=== PATIENT | female | born 1945 | race Native Hawaiian/Other Pacific Islander ===

== ENCOUNTER 2022-07-13 16:01 | Outpatient (CLI) | payer OTHER | END 2022-07-13 19:07 | disposition home or self-care (01) | LOC: CT 16:01 | PROVIDERS: ATTEND Internal Medicine | DX: R41.82 Altered mental status, unspecified (principal); R47.01 Aphasia ==

== ENCOUNTER 2022-07-17 10:33 | Outpatient (CLI) | payer OTHER | END 2022-07-17 20:32 | disposition home or self-care (01) | LOC: MRI 10:33 | PROVIDERS: ATTEND Internal Medicine | DX: R41.82 Altered mental status, unspecified (principal); G45.9 Transient cerebral ischemic attack, unspecified; R47.01 Aphasia ==

== ENCOUNTER 2022-09-11 15:48 | Outpatient (CLI) | payer OTHER | END 2022-09-11 19:06 | disposition home or self-care (01) | LOC: RAD 15:48 | PROVIDERS: ATTEND Internal Medicine Hematology & Oncology | DX: N95.1 Menopausal and female climacteric states (principal); N95.8 Other specified menopausal and perimenopausal disorders; Z13.820 Encounter for screening for osteoporosis ==